=== PATIENT | male | born 1940 | race Caucasian/White ===

== ENCOUNTER 2017-01-20 11:36 | Inpatient (IN) | payer MEDICARE ==
[~2017-01-20] VITALS: Ht 182.9 cm; Wt 92.5 kg
[2017-01-20] MEDS ORDERED: PLEASE ENTER HEIGHT AND WEIGHT MC SCH (12:00)
[2017-01-20 12:01] VITALS: BP 120/87
[2017-01-20 12:10] LABS: WHITE BLOOD COUNT 9.2 x10^3/uL (3.4-10)
[2017-01-20 12:16] LABS: BLOOD UREA NITROGEN 15 mg/dL (7-18)
[2017-01-20 13:54] VITALS: BP 110/75
[2017-01-20] MEDS ORDERED: DILTIAZEM 5 MG/ML, 5ML IV ONE (16:00)
[2017-01-20] MEDS ORDERED: ZOLPIDEM 5MG TABLET PO PRN (16:00)
[2017-01-20] MEDS ORDERED: DILTIAZEM 125 MG in SODIUM CHLORIDE 0.9% 100 ML IV PRN (16:00)
[2017-01-20] MEDS ORDERED: PNEUMOCOCCAL 23 VACCINE IM-VACC ONE (16:30)
[2017-01-20] MEDS ORDERED: FLU VACC QS2017-18 (36MOS+) UP/PF 0.5 ML IM-VACC ONE (16:30)
[2017-01-20] MEDS: METOPROLOL TARTRATE 25 MG TABLET PO SCH (17:59)
[2017-01-20 18:50] VITALS: BP 103/72
[2017-01-20] MEDS: DABIGATRAN 150 MG CAPSULE PO SCH (20:18)
[2017-01-20] MEDS ORDERED: ATORVASTATIN 40 MG TABLET PO SCH (21:00)
[2017-01-21 01:45] VITALS: BP 110/75
[2017-01-21] MEDS: METOPROLOL TARTRATE 25 MG TABLET PO SCH (08:00)
[2017-01-21 08:24] VITALS: BP 104/68
[2017-01-21] MEDS: DABIGATRAN 150 MG CAPSULE PO SCH (08:25)
[2017-01-21] MEDS ORDERED: LOSARTAN 50MG TABLET PO SCH (09:00)
[2017-01-21] MEDS ORDERED: DABI150C PO (10:49)
[2017-01-21] MEDS ORDERED: FLEC50TA25 PO (10:49)
[2017-01-21] MEDS ORDERED: LOSA50TA2 PO (10:49)
[2017-01-21] MEDS ORDERED: ATOR40TA78 PO (10:49)
[2017-01-21] MEDS ORDERED: DILTIAZEM 125 MG in SODIUM CHLORIDE 0.9% 100 ML IV PRN ×3 (16:00)
== END 2017-01-21 12:45 | disposition home or self-care (01) | DRG 309 ==
LOC: 5SO 11:36 → DCLOUNGE 01-21 12:34
PROVIDERS: ADMIT Internal Medicine Cardiovascular Disease; ATTEND Internal Medicine Cardiovascular Disease
DX: I48.0 Paroxysmal atrial fibrillation (principal); D68.69 Other thrombophilia; E78.5 Hyperlipidemia, unspecified; I10 Essential (primary) hypertension; I48.92 Unspecified atrial flutter; J45.909 Unspecified asthma, uncomplicated
CPT/HCPCS: 36415; 71020; 80048; 83880; 85025; 90732; 93306